=== PATIENT | female | born 2000 | race Native Hawaiian/Other Pacific Islander ===

== ENCOUNTER 2018-07-19 13:50 | Outpatient (CLI) | payer OTHER | END 2018-07-19 20:40 | disposition home or self-care (01) | LOC: LABW 13:50 | DX: J02.9 Acute pharyngitis, unspecified (principal); R05 Cough; M79.10 Myalgia, unspecified site | CPT/HCPCS: 87502; 87651 ==

== ENCOUNTER 2019-01-24 07:39 | Emergency (ER) | payer OTHER ==
[~2019-01-24] VITALS: Ht 162.6 cm; Wt 94.3 kg
[2019-01-24 07:52] VITALS: TEMP 98.4
[2019-01-24 08:22] LABS: PLATELET COUNT 276 K/uL (152-353)
[2019-01-24 08:26] LABS: POTASSIUM 3.6 mmol/L (3.6-5.2)
[2019-01-24 12:09] VITALS: BP 134/78
== END 2019-01-24 12:08 | disposition home or self-care (01) ==
LOC: ED 07:39
PROVIDERS: Emergency Medicine
DX: N83.201 Unspecified ovarian cyst, right side (principal)
CPT/HCPCS: 36415; 80053; 81000; 81025; 85027; 96374; 99284; J1885; Q9963